=== PATIENT | female | born 1955 | race African-American/Black ===

== ENCOUNTER → 2016-10-17 | Outpatient (CLI) | payer OTHER | LOC: RAD 10:42 | PROVIDERS: ATTEND Family Medicine | DX: M25.552 Pain in left hip (principal); M25.551 Pain in right hip | CPT/HCPCS: 78315; A9503; Q9969 ==

== ENCOUNTER → 2017-07-05 | Outpatient (CLI) | payer OTHER ==
--- NOTE | 2017-07-05 17:11 | RADIOLOGY REPORT (SQ) ---
EXAM DESCRIPTION: CHEST PA/LATERAL COMPLETED DATE/TIME: 07/05/2017 4:57 pm REASON FOR STUDY: PRE OP COMPARISON: 04/02/2010 EXAM PARAMETERS: NUMBER OF VIEWS: two views TECHNIQUE: Digital Frontal and Lateral radiographic views of the chest acquired. RADIATION DOSE: NA LIMITATIONS: none FINDINGS: LUNGS AND PLEURA: No opacities, masses or pneumothorax. No pleural effusion. MEDIASTINUM AND HILAR STRUCTURES: No masses or contour abnormalities. HEART AND VASCULAR STRUCTURES: Heart normal size. No evidence for failure. BONES: No acute findings. HARDWARE: None in the chest. OTHER: No other significant finding. IMPRESSION: NO SIGNIFICANT RADIOGRAPHIC FINDING IN THE CHEST. TECHNICAL DOCUMENTATION: JOB ID: [id number] [employer]- All Rights Reserved
--- NOTE | 2017-07-05 17:36 | EKG REPORT ---
SEVERITY:- BORDERLINE ECG - SINUS RHYTHM PROBABLE LEFT ATRIAL ABNORMALITY : Confirmed by: Cari Guy MD 05-Jul-2017 17:34:48
[2017-07-05 18:02] LABS: ABSOLUTE EOSINOPHILS # (AUTO) 0.2 10^3/uL (0.0-0.6); ABSOLUTE MONOCYTES (AUTO) 0.7 10^3/uL (0.1-1.4); ABSOLUTE NEUT (AUTO) 6.1 10^3/uL (1.7-8.2); BASOPHILS % (AUTO) 0.5 % (0-2); EOSINOPHILS % (AUTO) 1.6 % (0-6); HEMATOCRIT 32.9 % (36.0-47.0); HEMOGLOBIN 11.3 g/dL (12.0-15.5); LYMPHOCYTES % (AUTO) 30.3 % (13-45); MEAN CORPUSCULAR HEMOGLOBIN 30.2 pg (27.0-33.4); MEAN CORPUSCULAR HGB CONC 34.3 g/dL (32.0-36.0); MEAN CORPUSCULAR VOLUME 88 fl (80-97); MONOCYTES % (AUTO) 6.6 % (3-13); RED BLOOD COUNT 3.73 10^6/uL (3.72-5.28); RED CELL DISTRIBUTION WIDTH 13.8 % (11.5-14.0)
[2017-07-05 18:08] LABS: APPEARANCE,URINE SLIGHTLY-CLOUDY; BILIRUBIN,URINE NEGATIVE (NEGATIVE); GLUCOSE, URINE NEGATIVE (NEGATIVE); KETONES,URINE NEGATIVE (NEGATIVE); LEUKOCYTE ESTERASE,URINE NEGATIVE (NEGATIVE); NITRITE,URINE NEGATIVE (NEGATIVE); PROTEIN,URINE NEGATIVE (NEGATIVE); URINE SPECIFIC GRAVITY 1.024; UROBILINOGEN,URINE NEGATIVE mg/dL (<2.0)
[2017-07-05 18:16] LABS: ANION GAP 14 (5-19); BLOOD UREA NITROGEN 21 mg/dL (7-20); CALCIUM 9.7 mg/dL (8.4-10.2); CARBON DIOXIDE 24 mmol/L (22-30); CHLORIDE 103 mmol/L (98-107); CREATININE RESULT 0.93 mg/dL (0.52-1.25); GLUCOSE 143 mg/dL (75-110); POTASSIUM 4.3 mmol/L (3.6-5.0); SODIUM 140.6 mmol/L (137-145)
== END ==
LOC: OD 15:58
PROVIDERS: ATTEND Orthopaedic Surgery
DX: Z01.818 Encounter for other preprocedural examination (principal)
CPT/HCPCS: 36415; 71020; 80048; 81001; 83036; 85025; 93005; 93010

== ENCOUNTER → 2017-07-18 | Outpatient (CLI) | payer OTHER ==
--- NOTE | 2017-07-18 10:05 | WOMENS IMAGING REPORT ---
EXAM DESCRIPTION: BILAT SCREENING MAMMO W/CAD COMPLETED DATE/TIME: 07/18/2017 9:57 am REASON FOR STUDY: ROUTINE SCREENING; Z12.31 Z12.31 ENCNTR SCREEN MAMMOGRAM FOR MALIGNANT NEOPLASM O F FRANKY COMPARISON: 06/23/2016 and 06/22/2015. TECHNIQUE: Standard craniocaudal and mediolateral oblique views of each breast recorded using digita l acquisition. LIMITATIONS: None. FINDINGS: No masses, calcifications or architectural distortion. No areas of suspicion. Read with the assistance of CAD. .[facility] - R2 Cenova Version 1.3 .[facility] - R2 Cenova Version 1.3 .[facility] - R2 Cenova Version 2.4 .[facility] [place] R2 Cenova Version 2.4 .[facility] - R2 Braze [employer] Version 9.2 IMPRESSION: NORMAL MAMMOGRAM. BIRADS 1. BREAST DENSITY: b. There are scattered areas of fibroglandular density. BIRAD: 1 NEGATIVE RECOMMENDATION: ROUTINE SCREENING COMMENT: The patient has been notified of the results by letter per MQSA requirements. Additional no tification policies are in place for contacting patient with suspicious or incomplete findings. Quality ID #[id number]: The [employer] recommends an annual screening mammogram for women aged 40 years or over. This facility utilizes a reminder system to ensure that all patients receive reminder letters, and/or direct phone calls for appointments. This includes reminders for routine scr eening mammograms, diagnostic mammograms, or other Breast Imaging Interventions when appropriate. Th is patient will be placed in the appropriate reminder system. The [employer] (ACR) has developed recommendations for screening MRI of the breast s in certain patient populations, to be used in conjunction with mammography. Breast MRI surveillanc e may be appropriate for women with more than 20% lifetime risk of developing breast cancer as deter mined by genetic testing, significant family history of the disease, or history of mantle radiation f or Hodgkins Disease. ACR Practice Guidelines 2008. TECHNICAL DOCUMENTATION: FINDING NUMBER: (1) ASSESSMENT: (1) JOB ID: [id number] [employer]- All Rights Reserved
== END ==
LOC: WI 09:20
PROVIDERS: ATTEND Family Medicine
DX: Z12.31 Encounter for screening mammogram for malignant neoplasm of breast (principal)
CPT/HCPCS: 77067; G0202

== ENCOUNTER 2017-07-24 06:22 | Inpatient (IN) | payer MEDICARE, OTHER ==
[~2017-07-24 06:22] MED LIST: CEFAZOLIN INJ 1 GM VIAL IV PRN; IBUPROFEN 800 MG in NORMAL SALINE 250 ML IV PRN; LACTATED RINGERS 1000 ML IV PRN; LANSOPRAZOLE 15 MG TAB.RAP.DR PO PRN; LIDOCAINE 0.5% INJ-PF (5 MG/ML) 50 ML SDV SUBCUT PRN; OXYCODONE HCL SR 10 MG TABLET PO PRN; VANCOMYCIN HCL 1,000 MG in DEXTROSE 5%-WATER 250 ML IV PRN
[2017-07-24] MEDS ORDERED: BUPIVACAINE INJ/PF LIPOSOME/PF 266 MG/20 ML SDV ONE (07:24)
[2017-07-24] MEDS ORDERED: THROMBIN (BOVINE) 5000 UNIT EPITAXIS KIT ONE (07:24)
[2017-07-24] MEDS ORDERED: THROMBIN (BOVINE) TOPICAL 20000 UNIT VIAL ONE (07:24)
[2017-07-24 07:37] LABS: POTASSIUM 3.8 mmol/L (3.6-5.0)
[2017-07-24] MEDS ORDERED: PROPOFOL INJ 200 MG/20 ML VIAL IV ONE (08:03)
[2017-07-24] MEDS ORDERED: MIDAZOLAM 2 MG/2 ML INJ ONE (08:03)
[2017-07-24] MEDS ORDERED: KETAMINE HCL INJ 500 MG/10 ML VIAL ONE (08:03)
[2017-07-24] MEDS ORDERED: TRANEXAMIC ACID INJ/PF 1,000 MG/10 ML SDV IV ONE ×2 (08:03→12:30)
[2017-07-24 08:43] LABS: HEMATOCRIT 32.3 % (36.0-47.0); HEMOGLOBIN 10.9 g/dL (12.0-15.5); HGB HCT DIFFERENCE 0.4; MEAN CORPUSCULAR HEMOGLOBIN 29.9 pg (27.0-33.4); MEAN CORPUSCULAR HGB CONC 33.9 g/dL (32.0-36.0); MEAN CORPUSCULAR VOLUME 88 fl (80-97); RED BLOOD COUNT 3.66 10^6/uL (3.72-5.28)
[2017-07-24] MEDS ORDERED: PROMETHAZINE HCL INJ 25 MG/1 ML VIAL IV PRN ×2 (09:57)
[2017-07-24] MEDS ORDERED: OXYCODONE-ACETAMINOPHEN 5-325 MG TABLET PO PRN ×4 (09:57→11:43)
[2017-07-24] MEDS ORDERED: MORPHINE SULFATE 10 MG/ML INJ IV PRN ×4 (09:57→10:11)
[2017-07-24] MEDS ORDERED: MEPERIDINE HCL/PF INJ 25 MG/1 ML DISP.SYRIN IV PRN (09:57)
[2017-07-24] MEDS ORDERED: FENTANYL CITRATE INJ/PF 100 MCG/2 ML AMPUL IV PRN ×3 (09:57)
[2017-07-24] MEDS ORDERED: DIPHENHYDRAMINE HCL 50 MG/ML VIAL IV PRN ×2 (09:57→10:11)
--- NOTE | 2017-07-24 10:03 | Operative Report ---
Operative Report DATE OF SURGERY: 07/24/17 PREOPERATIVE DIAGNOSIS: Left hip arthritis OPERATION: Left hip arthroplasty SURGEON: MARC AGUILAR 1ST STEM LEAD FORMER: DENISSE ORTIZ ANESTHESIA: Spinal TISSUE REMOVED OR ALTERED: Bone to pathology ESTIMATED BLOOD LOSS: 100 PROCEDURE: Implants used: Femur: [place] Accolade 2 size 2 stem Acetabular shell: 52 mm PSL shell Liner: 36 mm flat cross-link polyethylene liner Head: 36 mm standard chrome cobalt head The patient is placed in a right lateral decubitus position on the operating table. The left lower extremity and hindquarter is prepped and draped in a sterile fashion. A curvilinear incision was made over the greater trochanter a posterior approach the hip was taken. The femoral head is dislocated and the femoral neck transected using an oscillating saw. Attention was next turned to the acetabulum. Soft tissues cleared off the acetabulum using electrocautery. The acetabulum was then prepared using a series of hemispherical reamers until a 52 millimeters reamer is seated. Subsequently a 52 millimeters [place] PSL shell is impacted into position and secured with one screw. A standard flat 36 millimeters cross-link liner is impacted into the shell. Attention was next turned to the femur. Access is gained to the femoral canal using a box osteotome to the piriformis fossa. The femur is then prepared using a series of broaches until a number 2 broach is seated. A trial reduction was now performed using a 36 millimeters head with standard neck. Preoperative leg length was recreated and is excellent anterior posterior stability. A decision was made to proceed with the above construct. All trial implants were removed. The wound is irrigated with pulsed lavage. A number 2 stem is impacted into the femoral canal. A trial reduction was again performed with a 36 mm head and a standard neck. Findings as previously. The hip was dislocated one last time and the final chrome-cobalt head is impacted onto the trunnion. The hip was reduced. Wound is copiously irrigated with pulsed lavage. Sent closed in layers using interrupted Vicryl followed by karlie. A sterile dressing is applied and the patient's returned to recovery room in satisfactory patient.
[2017-07-24] MEDS ORDERED: DEXTROSE 40% GEL 15 GM TUBE PO PRN ×3 (10:11→11:38)
[2017-07-24] MEDS ORDERED: ONDANSETRON 4 MG TAB.RAPDIS PO PRN ×2 (10:11→14:00)
[2017-07-24] MEDS ORDERED: ACETAMINOPHEN 325 MG TABLET PO PRN (10:11)
[2017-07-24] MEDS ORDERED: MORPHINE SULFATE 10 MG/ML INJ IM PRN (10:11)
[2017-07-24] MEDS ORDERED: DEXTROSE 50%-WATER 25 GM/50 ML DISP.SYRIN IV PRN ×2 (10:11)
[2017-07-24] MEDS ORDERED: ONDANSETRON HCL INJ/PF 4 MG/2 ML SDV IV PRN ×2 (10:11→14:00)
[2017-07-24] MEDS ORDERED: RINGERS SOLUTION,LACTATED 1,000 ML IV PRN (10:11)
[2017-07-24] MEDS ORDERED: ZOLPIDEM TARTRATE 5 MG TABLET PO PRN ×2 (10:11→14:30)
[2017-07-24] MEDS ORDERED: GLUCAGON,HUMAN RECOMB 1 MG INJ SUBCUT PRN (10:11)
[2017-07-24] MEDS ORDERED: MAG HYDROX/AL HYDROX/SIMETH SUSP 30 ML UDCUP PO PRN ×2 (10:11→14:30)
[2017-07-24] MEDS ORDERED: ACETAMINOPHEN 100 ML IV ONE ×2 (10:50→16:11)
--- NOTE | 2017-07-24 10:55 | RADIOLOGY REPORT (SQ) ---
EXAM DESCRIPTION: PELVIS AP COMPLETED DATE/TIME: 07/24/2017 10:45 am REASON FOR STUDY: Post Op Long Cassette in PACU M16.12 UNILATERAL PRIMARY OSTEOARTHRITIS, LEFT HI P COMPARISON: CT abdomen and pelvis 09/13/2016 Bone scan of the hips 10/17/2016 NUMBER OF VIEWS: Portable AP pelvis TECHNIQUE: Digital radiographic images of the right hip post-procedure. LIMITATIONS: Obese patient FINDINGS: Fine bony detail over the pelvis is lost due to portable technique and large patient. The left hip replacement present, anchored by an acetabular screw. Acetabular screw parallels the [place] cortex of the left innominate bone, some of the screw threads are outside the bone. Femoral compo nent in good alignment. Barry catheter in the bladder IMPRESSION: Postoperative left hip as above. TECHNICAL DOCUMENTATION: JOB ID: [id number] [employer]- All Rights Reserved
[2017-07-24] MEDS ORDERED: INSULIN LISPRO 100 UNIT/ML 3 ML VIAL SUBCUT PRN (11:38)
[2017-07-24] MEDS ORDERED: DEXTROSE 50%-WATER SYRINGE 25 GM/50 ML DOSE IV PRN (11:38)
[2017-07-24] MEDS ORDERED: GLUCAGON,HUMAN RECOMB 1 MG INJ IM PRN (11:38)
[2017-07-24] MEDS ORDERED: DEXTROSE 40% GEL 15 GM TUBE X 2 PO PRN (11:38)
[2017-07-24] MEDS ORDERED: DEXTROSE 50%-WATER SYRINGE 12.5 GM/25 ML DOSE IV PRN (11:38)
[2017-07-24] MEDS ORDERED: HYDROMORPHONE HCL INJ/PF 2 MG/ML AMPULE IV PRN (11:42)
[2017-07-24] MEDS ORDERED: IBUPROFEN 800 MG TABLET PO PRN (11:44)
[2017-07-24] MEDS: METFORMIN HCL 500 MG TABLET PO SCH ×3 (14:05→21:36)
[2017-07-24] MEDS ORDERED: PHENYLEPHRINE HCL INJ/PF 10 MG/1 ML SDV ONE (15:17)
[2017-07-24] MEDS ORDERED: ONDANSETRON HCL INJ/PF 4 MG/2 ML SDV ONE (15:17)
[2017-07-24] MEDS: OXYCODONE HCL IR 5 MG TABLET PO PRN (16:10)
[2017-07-24] MEDS ORDERED: (PENDING PHARMACY ID) (Metformin Hcl [Metformin Hcl Er] 1,000 MG) PO SCH (17:00)
[2017-07-24] MEDS: IBUPROFEN 800 MG in NORMAL SALINE 250 ML IV SCH (17:43)
[2017-07-24] MEDS: OXYCODONE HCL SR 10 MG TABLET PO SCH (21:35)
[2017-07-24] MEDS: PREGABALIN 75 MG CAPSULE PO SCH (21:36)
[2017-07-24] MEDS: TRIAMTERENE/HYDROCHLOROTHIAZIDE 37.5-25 MG TABLET PO SCH (21:36)
[2017-07-24] MEDS: RIVAROXABAN 10 MG TABLET PO SCH (21:36)
[2017-07-24] MEDS: MONTELUKAST SODIUM 10 MG TABLET PO SCH (21:36)
[2017-07-24] MEDS ORDERED: (PENDING PHARMACY ID) (Triamterene/Hydrochlorothiazid [Triamterene-Hctz 37.5-25 Mg Cp] 1 C PO SCH (22:00)
[2017-07-24] MEDS ORDERED: PREGABALIN 75 MG CAPSULE PO SCH (22:00)
[2017-07-24] MEDS ORDERED: VANCOMYCIN HCL 1,000 MG in DEXTROSE 5%-WATER 250 ML IV ONE (22:11)
[2017-07-25] MEDS: IBUPROFEN 800 MG in NORMAL SALINE 250 ML IV SCH ×3 (02:18→17:23)
[2017-07-25] MEDS: LANSOPRAZOLE 30 MG TAB.RAP.DR PO SCH (05:38)
[2017-07-25 05:53] LABS: HEMATOCRIT 27.4 % (36.0-47.0); HEMOGLOBIN 9.4 g/dL (12.0-15.5); HGB HCT DIFFERENCE 0.8; MEAN CORPUSCULAR HEMOGLOBIN 30.9 pg (27.0-33.4); MEAN CORPUSCULAR HGB CONC 34.4 g/dL (32.0-36.0); MEAN CORPUSCULAR VOLUME 90 fl (80-97); RED BLOOD COUNT 3.05 10^6/uL (3.72-5.28); RED CELL DISTRIBUTION WIDTH 13.5 % (11.5-14.0)
[2017-07-25] MEDS ORDERED: LANSOPRAZOLE 30 MG TAB.RAP.DR PO SCH (06:00)
[2017-07-25 06:34] LABS: ANION GAP 13 (5-19); BLOOD UREA NITROGEN 18 mg/dL (7-20); CALCIUM 8.3 mg/dL (8.4-10.2); CARBON DIOXIDE 25 mmol/L (22-30); CHLORIDE 102 mmol/L (98-107); CREATININE RESULT 0.82 mg/dL (0.52-1.25); GLUCOSE 141 mg/dL (75-110); POTASSIUM 4.1 mmol/L (3.6-5.0); SODIUM 139.7 mmol/L (137-145)
[2017-07-25] MEDS ORDERED: INFLUENZA ADLT QUAD (36MOS+) 2017-18 VAC 0.5 ML SYR IM PRN (06:45)
--- NOTE | 2017-07-25 06:58 | PDOC PROGRESS REPORT ---
Subjective Progress Note for:: 07/25/17 Subjective:: Patient with minor complaints of discomfort this morning. Physical Exam Vital Signs: Temp Pulse Resp BP Pulse Ox 36.7 C 61 17 111/60 93 07/24/17 20:10 07/24/17 20:10 07/24/17 20:10 07/24/17 20:10 07/24/17 20:10 Intake & Output 07/23/17 07/24/17 07/25/17 06:59 06:59 06:59 Intake Total 5120 Output Total 3800 Balance 1320 General appearance: PRESENT: mild distress Head exam: PRESENT: normocephalic Respiratory exam: PRESENT: unlabored Cardiovascular exam: PRESENT: RRR Pulses: PRESENT: +1 pedal pulses bilateral Vascular exam: PRESENT: normal capillary refill GI/Abdominal exam: PRESENT: soft Rectal exam: PRESENT: deferred Extremities exam: PRESENT: other - Left hip dressing clean dry and intact. Leg lengths are equal. Distal neurovascular examination is intact. Neurological exam: PRESENT: alert, awake, oriented to person, oriented to place , oriented to time, oriented to situation. ABSENT: motor sensory deficit Psychiatric exam: PRESENT: appropriate affect, normal mood. ABSENT: homicidal ideation, suicidal ideation Skin exam: PRESENT: dry, intact, warm. ABSENT: cyanosis, rash Results Laboratory Results: 07/25/17 05:17 07/25/17 05:17 07/24/17 07/24/17 07/24/17 07:04 07:04 07:04 WBC 11.0 H RBC 3.66 L Hgb 10.9 L Hct 32.3 L MCV 88 MCH 29.9 MCHC 33.9 RDW 13.0 Plt Count 298 Sodium Potassium 3.8 Chloride Carbon Dioxide Anion Gap BUN Creatinine Est GFR ( Amer) Est GFR (Non-Af Amer) Glucose 149 H Calcium Blood Type B POSITIVE Antibody Screen NEGATIVE 07/25/17 07/25/17 05:17 05:17 WBC 9.0 RBC 3.05 L Hgb 9.4 L Hct 27.4 L MCV 90 MCH 30.9 MCHC 34.4 RDW 13.5 Plt Count 257 Sodium 139.7 Potassium 4.1 Chloride 102 Carbon Dioxide 25 Anion Gap 13 BUN 18 Creatinine 0.82 Est GFR ( Amer) > 60 Est GFR (Non-Af Amer) > 60 Glucose 141 H Calcium 8.3 L Blood Type Antibody Screen Impressions: Pelvis X-Ray 07/24/17 10:13 IMPRESSION: Postoperative left hip as above. Status: Imported from PACS Assessment & Plan - Diagnosis (1) Arthritis of left hip Is this a current diagnosis for this admission?: Yes Plan: 61-year-old black female postop day 1 left hip arthroplasty. Patient made limited progress with physical therapy including 70 feet. (2) Diabetes Qualifiers: Diabetes mellitus type: type 2 Is this a current diagnosis for this admission?: Yes Plan: Blood glucose range yesterday was between 110 and 145 - Time Time Spent with patient: 15-24 minutes Anticipated discharge: Home with Homehealth Within: within 24 hours - Patient to continue with physical therapy today. Anticipate discharge home with home health nursing and home health physical therapy tomorrow.
[2017-07-25] MEDS ORDERED: [UNRECOGNIZED DRUG - OTHER] PO SCH (10:00)
[2017-07-25] MEDS ORDERED: ATENOLOL 50 MG TABLET PO SCH (10:00)
[2017-07-25] MEDS ORDERED: BISOPROLOL PO SCH (10:00)
[2017-07-25] MEDS ORDERED: (PENDING PHARMACY ID) (Oxybutynin Chloride [Oxybutynin Chloride Er] 10 MG) PO SCH (10:00)
[2017-07-25] MEDS ORDERED: (PENDING PHARMACY ID) (Duloxetine Hcl [Duloxetine Hcl] 60 MG) PO SCH (10:00)
[2017-07-25] MEDS ORDERED: HYDROCHLOROTHIAZIDE PO SCH (10:00)
[2017-07-25] MEDS: METFORMIN HCL 500 MG TABLET PO SCH ×4 (10:21→21:50)
[2017-07-25] MEDS: PREGABALIN 75 MG CAPSULE PO SCH ×2 (10:22→21:50)
[2017-07-25] MEDS: OXYCODONE HCL SR 10 MG TABLET PO SCH ×2 (10:22→21:50)
[2017-07-25] MEDS: OXYBUTYNIN CHLORIDE 5 MG TABLET PO SCH (10:23)
[2017-07-25] MEDS: GLIPIZIDE XL 5 MG TAB.ER.24 PO SCH (10:24)
[2017-07-25] MEDS: DULOXETINE HCL 30 MG CAPSULE.DR PO SCH (10:24)
[2017-07-25] MEDS: MONTELUKAST SODIUM 10 MG TABLET PO SCH (21:49)
[2017-07-25] MEDS: TRIAMTERENE/HYDROCHLOROTHIAZIDE 37.5-25 MG TABLET PO SCH (21:49)
[2017-07-25] MEDS: RIVAROXABAN 10 MG TABLET PO SCH (21:49)
[2017-07-26] MEDS: IBUPROFEN 800 MG in NORMAL SALINE 250 ML IV SCH ×2 (01:55→10:23)
[2017-07-26] MEDS: LANSOPRAZOLE 30 MG TAB.RAP.DR PO SCH (06:09)
[2017-07-26 07:01] LABS: HEMATOCRIT 28.3 % (36.0-47.0); HEMOGLOBIN 9.6 g/dL (12.0-15.5); HGB HCT DIFFERENCE 0.5; MEAN CORPUSCULAR HEMOGLOBIN 30.2 pg (27.0-33.4); MEAN CORPUSCULAR HGB CONC 33.9 g/dL (32.0-36.0); MEAN CORPUSCULAR VOLUME 89 fl (80-97); RED BLOOD COUNT 3.17 10^6/uL (3.72-5.28); RED CELL DISTRIBUTION WIDTH 13.1 % (11.5-14.0); WHITE BLOOD COUNT 12.1 10^3/uL (4.0-10.5)
--- NOTE | 2017-07-26 07:27 | PDOC DISCHARGE SUMMARY ---
General - Admit/Disc Date/PCP Admission Date/Primary Care Provider: 07/24/17 06:22 TEE NICHOLAS MD Discharge Date: 07/26/17 - Discharge Diagnosis (1) Arthritis of left hip Is this a current diagnosis for this admission?: Yes - Additional Information Resuscitation Status: Full Code Discharge Diet: As Tolerated, Regular Discharge Activity: No Driving, No tub bath, Walk Frequently Home Medications: Aspirin [Angelica Chewable Aspirin] 81 mg PO DAILY 07/13/17 Bisoprolol/Hydrochlorothiazide [Bisoprolol-Hctz 5-6.25 mg Tab] 1 tab PO DAILY Duloxetine HCl 60 mg PO DAILY 07/13/17 Metformin HCl [Metformin HCl ER] 1,000 mg PO BIDBS 07/13/17 Montelukast Sodium [Singulair 10 mg Tablet] 10 mg PO QHS 07/13/17 Oxybutynin Chloride [Oxybutynin Chloride ER] 10 mg PO DAILY 07/13/17 Pantoprazole Sodium 40 mg PO DAILY 07/13/17 Triamterene/Hydrochlorothiazid [Triamterene-Hctz 37.5-25 mg Cp] 1 cap PO QHS Estradiol [Estradiol Transdermal Patch] 1 each TD GOODWIN@1000 07/23/17 Glipizide [Glipizide Xl] 10 mg PO ACBRKFST 07/23/17 Pregabalin [Lyrica] 150 mg PO Q12 07/23/17 Oxycodone HCl [Oxy-Ir 5 mg Tablet] 5 mg PO Q6HP PRN tablet 07/26/17 Rivaroxaban [Xarelto 10 mg Tablet] 10 mg PO QHS tablet 07/26/17 History of Present Illness History of Present Illness: MO ADLER is a 61 year old female with left hip arthritis to was admitted to the OR and underwent elective total left hip arthroplasty. Hospital Course Hospital Course: 61-year-old -[place] female with left hip arthritis who was admitted to the OR to undergo uncomplicated total left hip arthroplasty. She was taken to PACU in satisfactory condition. She was then taken to the surgical floor where her pain was managed by nursing staff and Dr. Alves. She was also seen by physical therapy to improve strength range of motion of the left lower extremity and work towards independent ambulation. She made great progress independently ambulating up to 150 feet. She will be discharged home today with home health nursing, home physical therapy, wheeled walker, bedside commode. Physical Exam Vital Signs: Temp Pulse Resp BP Pulse Ox 36.6 C 97 16 131/64 H 96 07/26/17 02:00 07/26/17 02:00 07/26/17 02:00 07/26/17 02:00 07/26/17 02:00 Intake & Output 07/25/17 07/26/17 07/27/17 06:59 06:59 06:59 Intake Total 5120 3414 Output Total 3800 600 Balance 1320 2814 General appearance: PRESENT: no acute distress, well-developed, well-nourished Head exam: PRESENT: atraumatic, normocephalic Pulses: PRESENT: normal dorsalis pedis pul, +2 pedal pulses bilateral Vascular exam: PRESENT: normal capillary refill Additional comments: Patient is lying recumbent in hospital bed with left lower extremity in full extension. Her honeycomb OpSite dressing is saturated with bhakti blood. This dressing is changed and a new one is placed and this is clean dry and intact. She has brisk capillary refill to toes on bilateral feet, there is minimal pedal edema her distal neurovascular exam is intact and her sensory and motor functions are intact Musculoskeletal exam: PRESENT: ambulatory Additional comments: Patient makes great progress with physical therapy and relating up to 150 feet independently. She will continue to work with home physical therapy to improve strength range of motion of the left lower extremity. Neurological exam: PRESENT: alert, awake, oriented to person, oriented to place , oriented to time, oriented to situation, CN II-XII grossly intact. ABSENT: motor sensory deficit Psychiatric exam: PRESENT: appropriate affect, normal mood. ABSENT: homicidal ideation, suicidal ideation Skin exam: PRESENT: dry, intact, warm. ABSENT: cyanosis, rash Results Laboratory Results: 07/26/17 06:08 07/25/17 05:17 07/26/17 06:08 WBC 12.1 H RBC 3.17 L Hgb 9.6 L Hct 28.3 L MCV 89 MCH 30.2 MCHC 33.9 RDW 13.1 Plt Count 243 Impressions: Pelvis X-Ray 07/24/17 10:13 IMPRESSION: Postoperative left hip as above. Plan Discharge Plan: 61-year-old -[place] female 2 days status post total left hip arthroplasty will be discharged home today with home health nursing, home physical therapy, walker, bedside commode. There was initial discussion of patient being discharged home and then transferring to a [facility] facility. Patient was advised that this is not the best option as she would be very difficult to transfer her from her home to a [facility] facility. Patient agreed to be discharged to her home and the visiting nurse service will change her OpSite dressing when they deem appropriate i.e. when it is saturated with bhakti blood. She will follow-up with Dr. Alves and Nicola PAZ at [facility] for surgery 2 weeks postoperatively for staple removal and reevaluation. Time Spent: Less than 30 Minutes
[2017-07-26] MEDS: METFORMIN HCL 500 MG TABLET PO SCH ×2 (08:26→12:18)
[2017-07-26] MEDS: OXYCODONE HCL IR 5 MG TABLET PO PRN (08:34)
[2017-07-26] MEDS: GLIPIZIDE XL 5 MG TAB.ER.24 PO SCH (10:19)
[2017-07-26] MEDS: OXYCODONE HCL SR 10 MG TABLET PO SCH (10:19)
[2017-07-26] MEDS: PREGABALIN 75 MG CAPSULE PO SCH (10:19)
[2017-07-26] MEDS: DULOXETINE HCL 30 MG CAPSULE.DR PO SCH (10:19)
[2017-07-26] MEDS: OXYBUTYNIN CHLORIDE 5 MG TABLET PO SCH (10:20)
[2017-07-26 12:43] VITALS: BP 131/64
[2017-07-30] MEDS ORDERED: ESTRADIOL 0.1 MG/24 HR PATCH.TDWK TD SCH (10:00)
== END 2017-07-26 13:31 | disposition home health service (06) | DRG 470 ==
LOC: INOR 06:22 → 4S 12:36
PROVIDERS: ADMIT Orthopaedic Surgery; ATTEND Orthopaedic Surgery
PROC: 3E0234Z Introduction of Serum, Toxoid and Vaccine into Muscle, Percutaneous Approach (ICD-10-PCS; 2017-07-24)
PROC: 0SRB02A Replacement of Left Hip Joint with Metal on Polyethylene Synthetic Substitute, Uncemented, Open Approach (ICD-10-PCS; principal; 2017-07-24 08:45)
DX: M16.12 Unilateral primary osteoarthritis, left hip (principal); E11.9 Type 2 diabetes mellitus without complications; F41.9 Anxiety disorder, unspecified; J45.909 Unspecified asthma, uncomplicated; Z83.3 Family history of diabetes mellitus; Z79.82 Long term (current) use of aspirin; Z79.84 Long term (current) use of oral hypoglycemic drugs; Z79.899 Other long term (current) drug therapy; M54.16 Radiculopathy, lumbar region; Z96.653 Presence of artificial knee joint, bilateral; Z90.710 Acquired absence of both cervix and uterus; E66.3 Overweight; Z68.36 Body mass index [BMI] 36.0-36.9, adult; Z23 Encounter for immunization
CPT/HCPCS: 01214; 36415; 72170; 80048; 82947; 82962; 84132; 85027; 86850; 86900; 86901; 86902; 86920; 86922; 88304; 88311; 90686; 94799; C1713; C1780; C9290; G8978-GP; G8979-GP; G8987-GO; G8988-GO; J0131; J0690; J1741; J2250; J2370; J2405; J2704; J3370; J3490; J7050; J7060; J7120

== ENCOUNTER → 2018-03-13 | Outpatient (CLI) | payer MEDICARE, OTHER ==
[2018-03-13 08:50] LABS: HEMATOCRIT 31.9 % (36.0-47.0); HEMOGLOBIN 10.6 g/dL (12.0-15.5); MEAN CORPUSCULAR HEMOGLOBIN 28.2 pg (27.0-33.4); MEAN CORPUSCULAR HGB CONC 33.1 g/dL (32.0-36.0); MEAN CORPUSCULAR VOLUME 85 fl (80-97); PLATELET COUNT 341 10^3/uL (150-450); RED BLOOD COUNT 3.74 10^6/uL (3.72-5.28); RED CELL DISTRIBUTION WIDTH 15.2 % (11.5-14.0); WHITE BLOOD COUNT 9.1 10^3/uL (4.0-10.5)
[2018-03-13 09:23] LABS: ALANINE AMINOTRANSFERASE 20 U/L (9-52); ALBUMIN 3.9 g/dL (3.5-5.0); ALKALINE PHOSPHATASE 73 U/L (38-126); ANION GAP 11 (5-19); ASPARTATE AMINO TRANSFERASE 17 U/L (14-36); BILIRUBIN,DIRECT 0.2 mg/dL (0.0-0.4); BILIRUBIN,TOTAL 0.2 mg/dL (0.2-1.3); BLOOD UREA NITROGEN 24 mg/dL (7-20); CALCIUM 9.9 mg/dL (8.4-10.2); CARBON DIOXIDE 27 mmol/L (22-30); CHLORIDE 106 mmol/L (98-107); CHOLESTEROL 167.08 mg/dL (0-200); GLUCOSE 113 mg/dL (75-110); POTASSIUM 4.1 mmol/L (3.6-5.0); TOTAL PROTEIN 7.1 g/dL (6.3-8.2); TRIGLYCERIDES 118 mg/dL (<150)
[2018-03-13 09:34] LABS: DIRECT LDL 97 mg/dL (<100)
== END ==
LOC: OD 08:14
PROVIDERS: ATTEND Internal Medicine Cardiovascular Disease
DX: R06.09 Other forms of dyspnea (principal); I10 Essential (primary) hypertension; E03.9 Hypothyroidism, unspecified; R07.9 Chest pain, unspecified; Z79.899 Other long term (current) drug therapy
CPT/HCPCS: 36415; 80048; 80061; 80076; 82306; 83735; 84439; 84443; 85027

== ENCOUNTER → 2018-04-10 | Outpatient (CLI) | payer MEDICARE, OTHER ==
[2018-04-10 13:47] LABS: ALANINE AMINOTRANSFERASE 20 U/L (9-52); ALKALINE PHOSPHATASE 64 U/L (38-126); ASPARTATE AMINO TRANSFERASE 15 U/L (14-36); BILIRUBIN,DIRECT 0.2 mg/dL (0.0-0.4); BILIRUBIN,TOTAL 0.6 mg/dL (0.2-1.3); CHOLESTEROL 122.99 mg/dL (0-200); TOTAL PROTEIN 7.2 g/dL (6.3-8.2); TRIGLYCERIDES 84 mg/dL (<150)
[2018-04-10 14:01] LABS: DIRECT LDL 50 mg/dL (<100)
== END ==
LOC: OD 12:24
PROVIDERS: ATTEND Internal Medicine Cardiovascular Disease
DX: E83.42 Hypomagnesemia (principal); E78.00 Pure hypercholesterolemia, unspecified; Z79.899 Other long term (current) drug therapy
CPT/HCPCS: 36415; 80061; 80076; 83735

== ENCOUNTER 2018-04-15 21:18 | Emergency (ER) | payer MEDICARE, OTHER ==
[2018-04-15] MEDS ORDERED: METOCLOPRAMIDE HCL INJ/PF 10 MG/2 ML SDV IV ONE (23:27)
[2018-04-15] MEDS ORDERED: DIPHENHYDRAMINE HCL 50 MG/ML VIAL IV ONE (23:27)
--- NOTE | 2018-04-15 23:32 | ER Document Report ---
ED General - General Chief Complaint: Breathing Difficulty Stated Complaint: HEADACHE Time Seen by Provider: 04/15/18 23:14 Notes: Patient is a 62-year-old female who presents with a few different complaints. First complaint is of a headache. Says a throbbing type of headache goes into her head. She first started noticing a Monday evening and has been continuous since then. She says it does seem to be worse after she takes isosorbide dinitrate. This was recently prescribed by her hotel yardperson, Dr. Abdalla. She says this was prescribed for her because she had a recent nuclear stress test that showed that she had a small blockage on a nuclear tress test was 2 weeks ago. She also had an echocardiogram that showed that she had a "mildly leaky valve". No traumatic injuries to the head. No recent fevers or infections. Patient's second complaint is of a lot of burping. She says when she burps she sometimes feels as if there are foods and come up. This also started approximately 2 days ago. She denies any associated abdominal pain. No new chest pain. Says when she gets a choking sensation she sometimes feels a bit short of breath with it. No vomiting. No spitting up blood. TRAVEL OUTSIDE OF THE [place] IN LAST 30 DAYS: No - Related Data Allergies/Adverse Reactions: No Known Allergies Allergy (Verified 07/24/17 07:04) Past Medical History - Social History Smoking Status: Never Smoker Chew tobacco use (# tins/day): No Frequency of alcohol use: None Drug Abuse: None Family History: Reviewed & Not Pertinent Patient has suicidal ideation: No Patient has homicidal ideation: No - Past Medical History Cardiac Medical History: Reports: Hx Hypertension Denies: Hx Atrial Fibrillation, Hx Congestive Heart Failure, Hx Coronary Artery Disease, Hx Heart Attack, Hx Hypercholesterolemia, Hx Peripheral Vascular Disease, Hx Pulmonary Embolism, Hx Heart Murmur Pulmonary Medical History: Reports: Hx Asthma, Hx Bronchitis, Hx Sleep Apnea - uses machine at home Denies: Hx COPD, Hx Pneumonia, Hx Respiratory Failure, Hx Tuberculosis Endocrine Medical History: Reports: Hx Diabetes Mellitus Type 2. Denies: Hx Graves' Disease, Hx Hyperthyroidism, Hx Hypothyroidism Renal/ Medical History: Denies: Hx End Stage Renal Disease, Hx Kidney Stones, Hx Peritoneal Dialysis Malignancy Medical History: Denies: Hx Lung Cancer GI Medical History: Reports: Hx Gastroesophageal Reflux Disease. Denies: Hx Crohn's Disease, Hx Hiatal Hernia, Hx Irritable Bowel, Hx Liver Failure, Hx Pancreatitis, Hx Ulcer Musculoskeletal Medical History: Reports Hx Arthritis, Denies Hx Fibromyalgia, Denies Hx Muscular Dystrophy, Reports Hx Musculoskeletal Deformity, Reports Hx Musculoskeletal Trauma Psychiatric Medical History: Denies: Hx Bipolar Disorder, Hx Depression, Hx Post Traumatic Stress Disorder , Hx Schizophrenia Traumatic Medical History: Denies: Hx Fractures Past Surgical History: Reports: Hx Hysterectomy, Hx Orthopedic Surgery - back; right foot; bilateral wrist for carpal tunnel, bilateral knee replace. Denies: Hx Appendectomy, Hx Bowel Surgery, Hx Section, Hx Cholecystectomy, Hx Colostomy, Hx Coronary Artery Bypass Graft, Hx Gastric Bypass Surgery, Hx Herniorrhaphy, Hx Mastectomy, Hx Pacemaker, Hx Tonsillectomy, Hx Tubal Ligation - Immunizations Immunizations up to date: No Hx Diphtheria, Pertussis, Tetanus Vaccination: No Review of Systems - Review of Systems Notes: My Normal Review Basic REVIEW OF SYSTEMS: CONSTITUTIONAL : Denies fever, chills, or sweats. Denies recent illness. EENT: Choking type sensation after she eats. Recurrent burping. CARDIOVASCULAR: Denies chest pain. RESPIRATORY: Denies cough, cold, or chest congestion. Denies shortness of breath, difficulty breathing, or wheezing. GASTROINTESTINAL: Denies abdominal pain. Denies nausea, vomiting, or diarrhea. Denies constipation. Last BM: GENITOURINARY: Denies difficulty urinating, painful urination, burning, frequency, or blood in urine. MUSCULOSKELETAL: Denies neck or back pain or joint pain or swelling. SKIN: Denies rash or skin lesions. NEUROLOGICAL: Denies altered mental status or loss of consciousness. Has a headache. Denies weakness or paralysis or loss of use of either side. Denies problems with gait or speech. Denies sensory or motor loss. ALL OTHER SYSTEMS REVIEWED AND NEGATIVE. Physical Exam - Vital signs Vitals: Temp Pulse Resp BP Pulse Ox 98.7 F 89 16 148/69 H 99 04/15/18 22:43 04/15/18 22:43 04/15/18 22:43 04/15/18 22:43 04/15/18 22:43 - Notes Notes: General Appearance: Well nourished, alert, cooperative, no acute distress, mild obvious discomfort. Vitals: reviewed, See vital signs table. Head: no swelling or tenderness to the head Eyes: PERRL, EOMI, Conjuctiva clear Mouth: No decreasd moisture Throat: No tonsillar inflammation, No airway obstruction, No lymphadenopathy Neck: Supple, no neck tenderness Lungs: No wheezing, No rales, No rhonci, No accessory muscle use, good air exchange bilaterally. Heart: Normal rate, Regular rythm, No murmur, no rub Abdomen: Normal BS, soft, No rigidity, No abdominal tenderness, No guarding, no rebound, no abdominal masses, no organomegaly Extremities: strength 5/5 in all extremities, good pulses in all extremities, no swelling or tenderness in the extremities, no edema. Skin: warm, dry, appropriate color, no rash Neuro: speech clear, oriented x 3, normal affect, responds appropriately to questions. Cranial nerves II through XII are intact. Distal sensation intact. Good strength in all 4 extremities. Normal coordination of movement. Course - Re-evaluation Re-evalutation: 04/16/18 01:53 Patient's headache is gradually improving. She says she feels much better as compared when she first arrived. Continue monitor make sure she that she continues to improve. 04/16/18 02:41 Patient still has some headache. Headache is little bit atypical for her and that she has not had many headaches like this in the past. Hard to tell if it is really sudden onset of more gradual onset based on her history. Sometimes she says things suggest is gradual onset and other times she suggests that came on more suddenly. Her noncontrasted CT scan is negative. I informed her that this is not 100% will not subarachnoid hemorrhage. I think subarachnoid hemorrhage is less likely; however, I told her I cannot fully rule out subarachnoid hemorrhage with a dry CT scan alone. I talked about other options such as lumbar puncture and CTA of the head. I informed her that lumbar puncture is more sensitive and is the closest thing to 100%. I informed that CT is still very sensitive but is not 100% sensitive. I reviewed the procedure lumbar puncture with her and CTA of the head as well. She prefers to do CTA and does not want lumbar puncture at this time. I have ordered a CTA of her head. 04/16/18 04:27 CTA of the head was normal. Patient's headache is now gone. She looks and feels improved. She was her headaches are worse whenever she takes isosorbide medication was recently prescribed to her. This could be possibly the underlying cause of the headache however the patient thinks her headache actually started approximately 2 hours before ever taking the medication however this is not 100% clear. Informed her to speak with her hotel yardperson, Dr. Abdalla, about whether not they can be adjustment of this medication to help reduce amount of headache she is having. I have prescribed Reglan for her. Informed her she should return to ER if she has recurrent worsening headaches are not improved with medication. Patient also has the acid reflux type symptoms and that she has the recurrent burping as well as the sensation of food sometimes gets stuck. She is followed by Dr. Moore neck she has an appointment this coming week with him to discuss whether or not she needs a repeat endoscopy. I encourage her to make sure that she does mention to him the symptoms that she has been having said that they can discuss whether or not she does need a repeat endoscopy and further treatment. She is already on a proton pump inhibitor. I informed her return to ER immediately if she has worsening of her symptoms, vomiting blood, fevers, or she feels unwell. Patient agrees with plan will be discharged home. Patient is also out of her blood pressure medication therefore have written prescription for this. Dictation of this chart was performed using voice recognition software; therefore, there may be some unintended grammatical errors. - Vital Signs Vital signs: Temp Pulse Resp BP Pulse Ox 98.7 F 89 16 148/69 H 99 04/15/18 22:43 04/15/18 22:43 04/15/18 22:43 04/15/18 22:43 04/15/18 22:43 - Laboratory Result Diagrams: 04/16/18 00:40 04/16/18 00:40 Laboratory results interpreted by me: 04/16/18 00:40 WBC 12.3 H RBC 3.70 L Hgb 10.5 L Hct 31.7 L RDW 14.5 H Absolute Neutrophils 8.9 H - EKG Interpretation by Me Additional EKG results interpreted by me: 04/15/18 23:47 EKG is reviewed and interpreted by me. EKG shows sinus rhythm with a rate of [address] segment elevation or depression. No ischemic T-wave inversions. TN interval, QRS duration, QTc intervals are within normal range. Old EKG for comparison is from July 05, 2017. Discharge - Discharge Clinical Impression: Headache Qualifiers: Headache type: unspecified Headache chronicity pattern: acute headache Intractability: not intractable Qualified Code(s): R51 - Headache Condition: Good Disposition: HOME, SELF-CARE Additional Instructions: Please call Dr. Abdalla to discuss with him if he feels that there needs to be any adjustment in your Isosorbide medication being that it makes your headaches worse. Please follow up with Dr. Moore in a week as scheduled to discuss your symptoms about the belching and difficulty swallowing. Please return to the ER immediately if you get recurrent headaches not improved with the Reglan, fevers , chest pain, difficulty breathing, vomiting or spitting up of blood, or if you feel that you are worsening in any way. Please wait to drive after taking the Reglan as it may make you sleepy. Prescriptions: Bisoprolol/Hydrochlorothiazide [Bisoprolol-Hctz 5-6.25 mg Tab] 1 each PO DAILY # 14 tablet Metoclopramide HCl [Reglan 10 mg Tablet] 1 tab PO ASDIR PRN #25 tablet PRN Reason: Referrals: JULIAN ABDALLA MD [EMERITUS] - Follow up in 3-5 days
--- NOTE | 2018-04-16 00:18 | RADIOLOGY REPORT (SQ) ---
EXAM DESCRIPTION: CT HEAD WITHOUT IV CONTRAST COMPLETED DATE/TME: 04/15/2018 23:27 CLINICAL HISTORY: headache COMPARISON: None available TECHNIQUE: Axial CT of the head obtained from the skull apex to the skull base without contrast. FINDINGS: No acute intracranial hemorrhage identified. No mass, mass effect, shift of the midline, abnormal extra-axial fluid collection or CT evidence of acute ischemic change identified. The ventricular system is unremarkable. No acute abnormalities of the supratentorial white matter, basal ganglia, cerebellum, or brainstem. The visualized paranasal sinuses and the mastoids are clear. No skull fracture identified. Visualized orbits and globes are unremarkable. DLP:1043.77 mGy-cm IMPRESSION: 1. No acute intracranial abnormality identified. This exam was performed according to our departmental dose-optimization program, which includes automated exposure control, adjustment of the mA and/or kV according to patient size and/or use of iterative reconstruction technique.
--- NOTE | 2018-04-16 00:24 | RADIOLOGY REPORT (SQ) ---
EXAM DESCRIPTION: XR CHEST 1 VIEW COMPLETED DATE/TME: 04/15/2018 23:27 CLINICAL HISTORY: 62 years, Female, difficulty swallowing COMPARISON: 07/05/2017 NUMBER OF VIEWS: One TECHNIQUE: PA LIMITATIONS: None. FINDINGS: Cardiomediastinal silhouette is within normal limits. No lung consolidate or pleural effusion. No pneumothorax. Osseous structures are without acute finding IMPRESSION: No acute chest finding. 2010 [employer]- All Rights Reserved
[2018-04-16 01:19] LABS: ABSOLUTE BASOPHILS # (AUTO) 0.1 10^3/uL (0.0-0.2); ABSOLUTE EOSINOPHILS # (AUTO) 0.1 10^3/uL (0.0-0.6); ABSOLUTE LYMPHOCYTES (AUTO) 2.4 10^3/uL (0.5-4.7); ABSOLUTE MONOCYTES (AUTO) 0.8 10^3/uL (0.1-1.4); ABSOLUTE NEUT (AUTO) 8.9 10^3/uL (1.7-8.2); BASOPHILS % (AUTO) 0.9 % (0-2); EOSINOPHILS % (AUTO) 0.7 % (0-6); HEMATOCRIT 31.7 % (36.0-47.0); HEMOGLOBIN 10.5 g/dL (12.0-15.5); LYMPHOCYTES % (AUTO) 19.2 % (13-45); MEAN CORPUSCULAR HEMOGLOBIN 28.3 pg (27.0-33.4); MEAN CORPUSCULAR VOLUME 86 fl (80-97); MONOCYTES % (AUTO) 6.7 % (3-13); PLATELET COUNT 318 10^3/uL (150-450); RED CELL DISTRIBUTION WIDTH 14.5 % (11.5-14.0); SEGMENTED NEUTROPHILS % (AUTO) 72.5 % (42-78); TOTAL CELLS COUNTED % (AUTO) 100 %; WHITE BLOOD COUNT 12.3 10^3/uL (4.0-10.5)
[2018-04-16 01:41] LABS: ANION GAP 12 (5-19); BLOOD UREA NITROGEN 18 mg/dL (7-20); CALCIUM 9.6 mg/dL (8.4-10.2); CARBON DIOXIDE 27 mmol/L (22-30); CHLORIDE 103 mmol/L (98-107); GLUCOSE 83 mg/dL (75-110); POTASSIUM 3.9 mmol/L (3.6-5.0)
[2018-04-16] MEDS ORDERED: FENTANYL CITRATE INJ/PF 100 MCG/2 ML AMPUL IV ONE (02:40)
[2018-04-16] MEDS ORDERED: NORMAL SALINE 500 ML IV ONE (02:41)
--- NOTE | 2018-04-16 04:02 | RADIOLOGY REPORT (SQ) ---
EXAM DESCRIPTION: CT HEAD ANGIOGRAPHY WITH IV CONTRAST COMPLETED DATE/TME: 04/16/2018 02:40 CLINICAL HISTORY: 62 years, Female, headache COMPARISON: None. TECHNIQUE: CT images of the head obtained following the uncomplicated intravenous administration of 70 mL of Isovue-370. 3-D/MIP reformatted images available. All CT scanners at this facility use dose modulation, iterative reconstruction, and/or weight based dosing when appropriate to reduce radiation dose to as low as reasonably achievable (ALARA). [facility]: Dose Right [facility]: CareDose [facility]: Dose Right [facility]: Teradose 4D [facility]: [employer] LIMITATIONS: FINDINGS: The intracranial internal carotid arteries have normal course and caliber bifurcate into patent A1 and M1 segments of the anterior and middle cerebral arteries. The anterior communicating artery is patent. The posterior communicating arteries are patent. No aneurysm identified. No evidence of stenosis or occlusion. No peripheral vascular pruning in any arterial territory. The intracranial vertebral arteries are widely patent and combined to form a patent basilar artery. The basilar artery bifurcates into patent P1 segments of the posterior cerebral arteries. No evidence of aneurysm, stenosis, or occlusion. Visualized orbits and globes are unremarkable. Paranasal sinuses and mastoid air cells are well aerated. IMPRESSION: 1. No abnormality in the intracranial vasculature identified. TECHNICAL DOCUMENTATION: Quality ID # 436: Final reports with documentation of one or more dose reduction techniques (e.g., Automated exposure control, adjustment of the mA and/or kV according to patient size, use of iterative reconstruction technique) 2010 [employer]- All Rights Reserved
[2018-04-16 04:41] VITALS: BP 129/68
--- NOTE | 2018-04-16 09:04 | EKG REPORT ---
SEVERITY:- BORDERLINE ECG - SINUS RHYTHM PROBABLE LEFT ATRIAL ABNORMALITY : Confirmed by: Ana Florian 16-Apr-2018 09:03:27
== END 2018-04-16 04:41 | disposition home or self-care (01) ==
LOC: ER 21:18
DX: R51 Headache (principal); K21.9 Gastro-esophageal reflux disease without esophagitis; Z79.899 Other long term (current) drug therapy; R14.2 Eructation; R09.89 Other specified symptoms and signs involving the circulatory and respiratory systems; R06.02 Shortness of breath; I10 Essential (primary) hypertension; J45.909 Unspecified asthma, uncomplicated; E11.9 Type 2 diabetes mellitus without complications
CPT/HCPCS: 93005; 99285; 96361; 96374; 96375; 36415; 83735; 85025; 80048; 71045; 70450; 70496; 93010; J1200; J3010; J2765; J7040

== ENCOUNTER → 2018-04-18 | Outpatient (CLI) | payer MEDICARE, OTHER | LOC: OD 16:27 | PROVIDERS: ATTEND Internal Medicine Cardiovascular Disease | DX: R51 Headache (principal) | CPT/HCPCS: 36415; 85652 ==

== ENCOUNTER → 2018-05-04 | Outpatient (CLI) | payer MEDICARE, OTHER ==
[2018-05-04 15:58] LABS: HEMATOCRIT 32.7 % (36.0-47.0); HEMOGLOBIN 10.9 g/dL (12.0-15.5); MEAN CORPUSCULAR HEMOGLOBIN 28.6 pg (27.0-33.4); MEAN CORPUSCULAR HGB CONC 33.2 g/dL (32.0-36.0); MEAN CORPUSCULAR VOLUME 86 fl (80-97); PLATELET COUNT 368 10^3/uL (150-450); WHITE BLOOD COUNT 10.4 10^3/uL (4.0-10.5)
[2018-05-04 16:06] LABS: INTERNATIONAL RATION (INR) 0.83; PROTHROMBIN TIME 11.9 SEC (11.4-15.4)
[2018-05-04 16:07] LABS: PARTIAL THROMBOPLASTIN TIME 32.4 SEC (23.5-35.8)
[2018-05-04 16:15] LABS: ANION GAP 14 (5-19); BLOOD UREA NITROGEN 17 mg/dL (7-20); CALCIUM 9.9 mg/dL (8.4-10.2); CARBON DIOXIDE 25 mmol/L (22-30); CHLORIDE 103 mmol/L (98-107); GLUCOSE 76 mg/dL (75-110); POTASSIUM 3.9 mmol/L (3.6-5.0)
== END ==
LOC: OD 15:12
PROVIDERS: ATTEND Internal Medicine Cardiovascular Disease
DX: Z01.810 Encounter for preprocedural cardiovascular examination (principal); R07.9 Chest pain, unspecified; R07.89 Other chest pain; Z79.01 Long term (current) use of anticoagulants
CPT/HCPCS: 36415; 80048; 85027; 85610; 85730

== ENCOUNTER → 2018-09-03 | Outpatient (CLI) | payer MEDICARE, OTHER ==
[2018-09-03 12:51] LABS: ALANINE AMINOTRANSFERASE 20 U/L (9-52); ALBUMIN 4.1 g/dL (3.5-5.0); ALKALINE PHOSPHATASE 70 U/L (38-126); ANION GAP 8 (5-19); ASPARTATE AMINO TRANSFERASE 16 U/L (14-36); BILIRUBIN,DIRECT 0.1 mg/dL (0.0-0.4); BILIRUBIN,TOTAL 0.6 mg/dL (0.2-1.3); BLOOD UREA NITROGEN 16 mg/dL (7-20); CALCIUM 9.5 mg/dL (8.4-10.2); CARBON DIOXIDE 28 mmol/L (22-30); CHLORIDE 102 mmol/L (98-107); GLUCOSE 125 mg/dL (75-110); SODIUM 138.4 mmol/L (137-145); TOTAL PROTEIN 7.1 g/dL (6.3-8.2); TRIGLYCERIDES 79 mg/dL (<150)
[2018-09-03 13:01] LABS: DIRECT LDL 60 mg/dL (<100)
[2018-09-03 13:20] LABS: POTASSIUM 4.1 mmol/L (3.6-5.0)
== END ==
LOC: OD 11:18
PROVIDERS: ATTEND Internal Medicine Cardiovascular Disease
DX: I10 Essential (primary) hypertension (principal); Z79.899 Other long term (current) drug therapy; E78.00 Pure hypercholesterolemia, unspecified; E83.42 Hypomagnesemia; M35.3 Polymyalgia rheumatica; R07.9 Chest pain, unspecified
CPT/HCPCS: 36415; 80048; 80061; 80076; 83735; 85652

== ENCOUNTER → 2018-09-22 | Outpatient (CLI) | payer MEDICARE, OTHER ==
[2018-09-22 13:07] LABS: ANION GAP 10 (5-19); BLOOD UREA NITROGEN 16 mg/dL (7-20); CALCIUM 9.5 mg/dL (8.4-10.2); CARBON DIOXIDE 27 mmol/L (22-30); CHLORIDE 101 mmol/L (98-107); GLUCOSE 138 mg/dL (75-110); POTASSIUM 4.1 mmol/L (3.6-5.0); SODIUM 138.1 mmol/L (137-145)
== END ==
LOC: OD 11:15
PROVIDERS: ATTEND Physician Assistant
DX: I10 Essential (primary) hypertension (principal); Z79.899 Other long term (current) drug therapy
CPT/HCPCS: 36415; 80048

== ENCOUNTER → 2018-12-20 | Outpatient (CLI) | payer MEDICARE, OTHER ==
[2018-12-20 11:15] LABS: ALANINE AMINOTRANSFERASE 30 U/L (9-52); ALKALINE PHOSPHATASE 73 U/L (38-126); ANION GAP 13 (5-19); ASPARTATE AMINO TRANSFERASE 17 U/L (14-36); BILIRUBIN,DIRECT 0.2 mg/dL (0.0-0.4); BILIRUBIN,TOTAL 0.6 mg/dL (0.2-1.3); BLOOD UREA NITROGEN 21 mg/dL (7-20); CALCIUM 9.8 mg/dL (8.4-10.2); CARBON DIOXIDE 27 mmol/L (22-30); CHLORIDE 99 mmol/L (98-107); GLUCOSE 149 mg/dL (75-110); SODIUM 138.8 mmol/L (137-145); TOTAL PROTEIN 7.1 g/dL (6.3-8.2); TRIGLYCERIDES 94 mg/dL (<150)
[2018-12-20 11:26] LABS: DIRECT LDL 59 mg/dL (<100)
== END ==
LOC: OD 10:26
PROVIDERS: ATTEND Physician Assistant
DX: I10 Essential (primary) hypertension (principal); E78.00 Pure hypercholesterolemia, unspecified; Z79.899 Other long term (current) drug therapy
CPT/HCPCS: 36415; 80048; 80061; 80076

== ENCOUNTER → 2019-03-15 | Outpatient (CLI) | payer MEDICARE, OTHER ==
[2019-03-15 12:52] LABS: ALANINE AMINOTRANSFERASE 29 U/L (9-52); ALBUMIN 4.2 g/dL (3.5-5.0); ALKALINE PHOSPHATASE 75 U/L (38-126); ANION GAP 10 (5-19); ASPARTATE AMINO TRANSFERASE 18 U/L (14-36); BILIRUBIN,DIRECT 0.2 mg/dL (0.0-0.4); BILIRUBIN,TOTAL 0.5 mg/dL (0.2-1.3); BLOOD UREA NITROGEN 17 mg/dL (7-20); CALCIUM 9.7 mg/dL (8.4-10.2); CARBON DIOXIDE 31 mmol/L (22-30); CHLORIDE 99 mmol/L (98-107); CHOLESTEROL 117.57 mg/dL (0-200); GLUCOSE 160 mg/dL (75-110); POTASSIUM 4.3 mmol/L (3.6-5.0); SODIUM 139.9 mmol/L (137-145); TOTAL PROTEIN 7.2 g/dL (6.3-8.2); TRIGLYCERIDES 101 mg/dL (<150)
[2019-03-15 13:03] LABS: DIRECT LDL 62 mg/dL (<100)
== END ==
LOC: OD 11:42
PROVIDERS: ATTEND Physician Assistant
DX: I10 Essential (primary) hypertension (principal); E83.42 Hypomagnesemia; E78.00 Pure hypercholesterolemia, unspecified; Z79.899 Other long term (current) drug therapy
CPT/HCPCS: 36415; 80048; 80061; 80076; 83735

== ENCOUNTER → 2019-06-15 | Outpatient (CLI) | payer MEDICARE, OTHER ==
[2019-06-15 10:44] LABS: ANION GAP 12 (5-19); BLOOD UREA NITROGEN 18 mg/dL (7-20); CALCIUM 9.7 mg/dL (8.4-10.2); CARBON DIOXIDE 28 mmol/L (22-30); CHLORIDE 98 mmol/L (98-107); GLUCOSE 168 mg/dL (75-110); POTASSIUM 4.2 mmol/L (3.6-5.0)
== END ==
LOC: OD 09:25
PROVIDERS: ATTEND Physician Assistant
DX: E83.42 Hypomagnesemia (principal); I10 Essential (primary) hypertension; Z79.899 Other long term (current) drug therapy
CPT/HCPCS: 36415; 80048; 83735

== ENCOUNTER → 2019-07-16 | Outpatient (CLI) | payer MEDICARE, OTHER ==
[2019-07-16 11:36] LABS: ABSOLUTE BASOPHILS # (AUTO) 0.1 10^3/uL (0.0-0.2); ABSOLUTE EOSINOPHILS # (AUTO) 0.2 10^3/uL (0.0-0.6); ABSOLUTE LYMPHOCYTES (AUTO) 2.5 10^3/uL (0.5-4.7); ABSOLUTE MONOCYTES (AUTO) 0.7 10^3/uL (0.1-1.4); ABSOLUTE NEUT (AUTO) 5.3 10^3/uL (1.7-8.2); BASOPHILS % (AUTO) 0.8 % (0-2); EOSINOPHILS % (AUTO) 2.6 % (0-6); HEMATOCRIT 34.3 % (36.0-47.0); HEMOGLOBIN 11.2 g/dL (12.0-15.5); LYMPHOCYTES % (AUTO) 28.5 % (13-45); MEAN CORPUSCULAR HEMOGLOBIN 28.1 pg (27.0-33.4); MEAN CORPUSCULAR HGB CONC 32.6 g/dL (32.0-36.0); MEAN CORPUSCULAR VOLUME 86 fl (80-97); MONOCYTES % (AUTO) 7.5 % (3-13); PLATELET COUNT 293 10^3/uL (150-450); RED BLOOD COUNT 3.98 10^6/uL (3.72-5.28); RED CELL DISTRIBUTION WIDTH 13.9 % (11.5-14.0); SEGMENTED NEUTROPHILS % (AUTO) 60.6 % (42-78); TOTAL CELLS COUNTED % (AUTO) 100 %; WHITE BLOOD COUNT 8.7 10^3/uL (4.0-10.5)
[2019-07-16 11:38] LABS: ADD MANUAL MICROSCOPIC YES; APPEARANCE,URINE CLEAR; BILIRUBIN,URINE NEGATIVE (NEGATIVE); COLOR,URINE YELLOW; GLUCOSE, URINE NEGATIVE (NEGATIVE); KETONES,URINE NEGATIVE (NEGATIVE); LEUKOCYTE ESTERASE,URINE NEGATIVE (NEGATIVE); NITRITE,URINE NEGATIVE (NEGATIVE); PROTEIN,URINE NEGATIVE (NEGATIVE); URINE SPECIFIC GRAVITY 1.024; UROBILINOGEN,URINE NEGATIVE mg/dL (<2.0)
[2019-07-16 11:47] LABS: BACTERIA,URINE 1+ /HPF
[2019-07-16 12:09] LABS: ANION GAP 13 (5-19); BLOOD UREA NITROGEN 23 mg/dL (7-20); CALCIUM 9.8 mg/dL (8.4-10.2); CARBON DIOXIDE 25 mmol/L (22-30); CHLORIDE 103 mmol/L (98-107); GLUCOSE 148 mg/dL (75-110); POTASSIUM 4.1 mmol/L (3.6-5.0)
--- NOTE | 2019-07-16 12:19 | RADIOLOGY REPORT (SQ) ---
EXAM DESCRIPTION: CHEST PA/LATERAL COMPLETED DATE/TIME: 07/16/2019 11:21 am REASON FOR STUDY: PRE-OP COMPARISON: PA view of the chest from 04/16/2018. EXAM PARAMETERS: NUMBER OF VIEWS: two views TECHNIQUE: Digital Frontal and Lateral radiographic views of the chest acquired. RADIATION DOSE: NA LIMITATIONS: none FINDINGS: LUNGS AND PLEURA: No consolidation, pleural effusion or pneumothorax. MEDIASTINUM AND HILAR STRUCTURES: No mediastinal or hilar contour abnormality. HEART AND VASCULAR STRUCTURES: The cardiac silhouette and pulmonary vasculature are within normal rodrigues its. BONES: No acute findings. HARDWARE: None in the chest. OTHER: No other finding. IMPRESSION: No acute cardiopulmonary process. TECHNICAL DOCUMENTATION: JOB ID: [id number] [employer]- All Rights Reserved Reading location - IP/workstation name: [email or web address]
--- NOTE | 2019-07-16 13:51 | EKG REPORT ---
SEVERITY:- NORMAL ECG - SINUS RHYTHM : Confirmed by: King Lucas MD 16-Jul-2019 13:50:58
== END ==
LOC: OD 10:52
PROVIDERS: ATTEND Orthopaedic Surgery
DX: Z01.810 Encounter for preprocedural cardiovascular examination (principal); Z01.811 Encounter for preprocedural respiratory examination; Z01.812 Encounter for preprocedural laboratory examination; M17.11 Unilateral primary osteoarthritis, right knee; E11.9 Type 2 diabetes mellitus without complications
CPT/HCPCS: 36415; 71046; 80048; 81001; 83036; 85025; 93005; 93010

== ENCOUNTER → 2019-07-29 | Outpatient (CLI) | payer MEDICARE, OTHER ==
--- NOTE | 2019-07-29 14:58 | WOMENS IMAGING REPORT ---
EXAM DESCRIPTION: 3D SCREENING MAMMO BILAT COMPLETED DATE/TIME: 07/29/2019 2:04 pm REASON FOR STUDY: Z12.31 ENCOUNTER FOR SCREENING MAMMOGRAM FOR MALIGNANT NEOPLASM OF BREAST Z12.31 ENCNTR SCREEN MAMMOGRAM FOR MALIGNANT NEOPLASM OF FRANKY COMPARISON: 07/19/2018 and 07/18/2017. EXAM PARAMETERS: Views: Standard craniocaudal and mediolateral oblique views of each breast recorded using digital acquisition and breast tomosynthesis. Read with the assistance of CAD. .[facility] - R2 Deck Worker Version 9.2 LIMITATIONS: None. FINDINGS: No suspicious masses, suspicious calcifications or architectural distortion. No areas of c oncern. IMPRESSION: NEGATIVE MAMMOGRAM. BIRADS 1. BREAST DENSITY: b. There are scattered areas of fibroglandular density. BIRAD: ASSESSMENT: 1 NEGATIVE RECOMMENDATION: ROUTINE SCREENING COMMENT: The patient has been notified of the results by letter per MQSA requirements. Additional no tification policies are in place for contacting patient with suspicious or incomplete findings. Quality ID #225: The [employer] recommends an annual screening mammogram for women aged 40 years or over. This facility utilizes a reminder system to ensure that all patients receive reminder letters, and/or direct phone calls for appointments. This includes reminders for routine scr eening mammograms, diagnostic mammograms, or other Breast Imaging Interventions when appropriate. Th is patient will be placed in the appropriate reminder system. TECHNICAL DOCUMENTATION: FINDING NUMBER: (1) ASSESSMENT: (1) JOB ID: [id number] [employer]- All Rights Reserved Reading location - IP/workstation name: [email or web address]
== END ==
LOC: WI 13:52
PROVIDERS: ATTEND Family Medicine
DX: Z12.31 Encounter for screening mammogram for malignant neoplasm of breast (principal)
CPT/HCPCS: 77063; 77067

== ENCOUNTER → 2019-09-23 | Outpatient (CLI) | payer MEDICARE, OTHER ==
[2019-09-23 09:28] LABS: ALBUMIN 4.1 g/dL (3.5-5.0); ALKALINE PHOSPHATASE 63 U/L (38-126); ANION GAP 12 (5-19); ASPARTATE AMINO TRANSFERASE 25 U/L (14-36); BILIRUBIN,DIRECT 0.3 mg/dL (0.0-0.4); BILIRUBIN,TOTAL 0.4 mg/dL (0.2-1.3); BLOOD UREA NITROGEN 27 mg/dL (7-20); CALCIUM 10.2 mg/dL (8.4-10.2); CARBON DIOXIDE 27 mmol/L (22-30); CHLORIDE 102 mmol/L (98-107); CHOLESTEROL 133.77 mg/dL (0-200); GLUCOSE 84 mg/dL (75-110); POTASSIUM 3.8 mmol/L (3.6-5.0); TOTAL PROTEIN 7.4 g/dL (6.3-8.2); TRIGLYCERIDES 101 mg/dL (<150)
[2019-09-23 09:39] LABS: DIRECT LDL 70 mg/dL (<100)
== END ==
LOC: OD 07:51
PROVIDERS: ATTEND Physician Assistant
DX: E78.00 Pure hypercholesterolemia, unspecified (principal); I10 Essential (primary) hypertension; E83.42 Hypomagnesemia; Z79.899 Other long term (current) drug therapy
CPT/HCPCS: 36415; 80048; 80061; 80076; 83735

== ENCOUNTER → 2020-03-25 | Outpatient (CLI) | payer MEDICARE, OTHER ==
[2020-03-25 09:20] LABS: ALBUMIN 4.2 g/dL (3.5-5.0); ALKALINE PHOSPHATASE 61 U/L (38-126); ANION GAP 6 (5-19); ASPARTATE AMINO TRANSFERASE 20 U/L (14-36); BILIRUBIN,TOTAL 0.3 mg/dL (0.2-1.3); BLOOD UREA NITROGEN 26 mg/dL (7-20); CALCIUM 9.7 mg/dL (8.4-10.2); CARBON DIOXIDE 30 mmol/L (22-30); CHLORIDE 101 mmol/L (98-107); CHOLESTEROL 132.25 mg/dL (0-200); GLUCOSE 103 mg/dL (75-110); TOTAL PROTEIN 7.3 g/dL (6.3-8.2); TRIGLYCERIDES 67 mg/dL (<150)
[2020-03-25 09:31] LABS: DIRECT LDL 54 mg/dL (<100)
== END ==
LOC: OD 08:09
PROVIDERS: ATTEND Physician Assistant
DX: E67.3 Hypervitaminosis D (principal); I10 Essential (primary) hypertension; E78.00 Pure hypercholesterolemia, unspecified; Z79.899 Other long term (current) drug therapy
CPT/HCPCS: 36415; 80048; 80061; 80076; 82306

== ENCOUNTER 2020-06-06 13:43 | Emergency (ER) | payer MEDICARE, OTHER ==
[2020-06-06] MEDS ORDERED: ACETAMINOPHEN 325 MG TABLET PO ONE (14:25)
--- NOTE | 2020-06-06 14:27 | ER Document Report ---
ED Medical Screen (RME) - General Stated Complaint: BACK PAIN Time Seen by Provider: 06/06/20 14:19 Mode of Arrival: Ambulatory Information source: Patient Notes: HPI; 64-year-old female presents to the emergency room complaining of left lower flank and back pain for the past 2 days. She denies any trauma or injury. History of previous back surgeries. Complains of urinary frequency but no dysuria. Denies any loss of control of bowels or bladder. No saddle anesthesia. Has not taken any medications for her symptoms. Drove self to the emergency room. PE: Alert and oriented x3. Lungs: Clear to auscultation without rales, rhonchi, wheezes. Heart: Regular rate rhythm without murmurs, rubs, gallops. Left CVA tenderness on palpation. Ambulatory with a steady gait. I have greeted and performed a rapid initial assessment of this patient. A comprehensive ED assessment and evaluation of the patient, analysis of test results and completion of the medical decision making process will be conducted by additional ED providers. I have specifically instructed the patient or family members with the patient to immediately return to any nursing staff should anything change in the patient's condition or with their chief complaint. TRAVEL OUTSIDE OF THE [place] IN LAST 30 DAYS: No - Related Data Allergies/Adverse Reactions: No Known Allergies Allergy (Verified 07/24/17 07:04) Past Medical History - Social History Family history: Reviewed & Not Pertinent - Past Medical History Cardiac Medical History: Reports: Hx Hypertension Denies: Hx Atrial Fibrillation, Hx Congestive Heart Failure, Hx Coronary Artery Disease, Hx Heart Attack, Hx Hypercholesterolemia, Hx Peripheral Vascular Disease, Hx Pulmonary Embolism, Hx Heart Murmur Pulmonary Medical History: Reports: Hx Asthma, Hx Bronchitis, Hx Sleep Apnea - uses machine at home Denies: Hx COPD, Hx Pneumonia, Hx Respiratory Failure, Hx Tuberculosis Endocrine Medical History: Reports: Hx Diabetes Mellitus Type 2. Denies: Hx Graves' Disease, Hx Hyperthyroidism, Hx Hypothyroidism Renal/ Medical History: Denies: Hx End Stage Renal Disease, Hx Kidney Stones, Hx Peritoneal Dialysis Malignancy Medical History: Denies: Hx Lung Cancer GI Medical History: Reports: Hx Gastroesophageal Reflux Disease. Denies: Hx Crohn's Disease, Hx Hiatal Hernia, Hx Irritable Bowel, Hx Liver Failure, Hx Pancreatitis, Hx Ulcer Musculoskeltal Medical History: Reports Hx Arthritis, Denies Hx Fibromyalgia, Denies Hx Muscular Dystrophy, Reports Hx Musculoskeletal Deformity, Reports Hx Musculoskeletal Trauma, Denies Hx Systemic Lupus Erythematosus Psychiatric Medical History: Denies: Hx Bipolar Disorder, Hx Depression, Hx Post Traumatic Stress Disorder, Hx Schizophrenia Traumatic Medical History: Denies: Hx Fractures Past Surgical History: Reports: Hx Hysterectomy, Hx Orthopedic Surgery - back; right foot; bilateral wrist for carpal tunnel, bilateral knee replace. Denies: Hx Appendectomy, Hx Bowel Surgery, Hx Section, Hx Cholecystectomy, Hx Colostomy, Hx Coronary Artery Bypass Graft, Hx Gastric Bypass Surgery, Hx Herniorrhaphy, Hx Mastectomy, Hx Pacemaker, Hx Tonsillectomy, Hx Tubal Ligation - Immunizations Immunizations up to date: No Hx Diphtheria, Pertussis, Tetanus Vaccination: No Physical Exam - Vital signs Vitals: Temp Pulse Resp BP Pulse Ox 97.8 F 58 L 16 124/62 98 06/06/20 13:47 06/06/20 13:47 06/06/20 13:47 06/06/20 13:47 06/06/20 13:47 Course - Vital Signs Vital signs: Temp Pulse Resp BP Pulse Ox 97.8 F 58 L 16 124/62 98 06/06/20 13:47 06/06/20 13:47 06/06/20 13:47 06/06/20 13:47 06/06/20 13:47
[2020-06-06 15:05] LABS: APPEARANCE,URINE CLEAR; BILIRUBIN,URINE NEGATIVE (NEGATIVE); COLOR,URINE STRAW; GLUCOSE, URINE NEGATIVE (NEGATIVE); KETONES,URINE NEGATIVE (NEGATIVE); LEUKOCYTE ESTERASE,URINE NEGATIVE (NEGATIVE); NITRITE,URINE NEGATIVE (NEGATIVE); PROTEIN,URINE NEGATIVE (NEGATIVE); URINE SPECIFIC GRAVITY 1.011; UROBILINOGEN,URINE NEGATIVE mg/dL (<2.0)
[2020-06-06 15:06] LABS: ALBUMIN 4.3 g/dL (3.5-5.0); ALKALINE PHOSPHATASE 54 U/L (38-126); ANION GAP 8 (5-19); ASPARTATE AMINO TRANSFERASE 21 U/L (14-36); BILIRUBIN,DIRECT 0.1 mg/dL (0.0-0.4); BILIRUBIN,TOTAL 0.7 mg/dL (0.2-1.3); BLOOD UREA NITROGEN 20 mg/dL (7-20); CALCIUM 10.1 mg/dL (8.4-10.2); CARBON DIOXIDE 30 mmol/L (22-30); CHLORIDE 103 mmol/L (98-107); GLUCOSE 109 mg/dL (75-110); POTASSIUM 4.5 mmol/L (3.6-5.0); TOTAL PROTEIN 7.2 g/dL (6.3-8.2)
[2020-06-06 15:10] LABS: ABSOLUTE EOSINOPHILS # (AUTO) 0.1 10^3/uL (0.0-0.6); ABSOLUTE LYMPHOCYTES (AUTO) 2.3 10^3/uL (0.5-4.7); ABSOLUTE MONOCYTES (AUTO) 0.6 10^3/uL (0.1-1.4); ABSOLUTE NEUT (AUTO) 4.2 10^3/uL (1.7-8.2); BASOPHILS % (AUTO) 0.5 % (0-2); EOSINOPHILS % (AUTO) 1.8 % (0-6); HEMATOCRIT 34.1 % (36.0-47.0); HEMOGLOBIN 11.6 g/dL (12.0-15.5); LYMPHOCYTES % (AUTO) 31.5 % (13-45); MEAN CORPUSCULAR HEMOGLOBIN 29.5 pg (27.0-33.4); MEAN CORPUSCULAR HGB CONC 34.2 g/dL (32.0-36.0); MEAN CORPUSCULAR VOLUME 86 fl (80-97); MONOCYTES % (AUTO) 7.8 % (3-13); PLATELET COUNT 301 10^3/uL (150-450); RED BLOOD COUNT 3.95 10^6/uL (3.72-5.28); RED CELL DISTRIBUTION WIDTH 14.5 % (11.5-14.0); SEGMENTED NEUTROPHILS % (AUTO) 58.4 % (42-78); TOTAL CELLS COUNTED % (AUTO) 100 %; WHITE BLOOD COUNT 7.2 10^3/uL (4.0-10.5)
--- NOTE | 2020-06-06 15:22 | RADIOLOGY REPORT (SQ) ---
EXAM DESCRIPTION: CT ABD/PELVIS NO ORAL OR IV IMAGES COMPLETED DATE/TIME: 06/06/2020 2:59 pm REASON FOR STUDY: flank pain COMPARISON: CT abdomen and pelvis 09/13/2016 TECHNIQUE: CT scan of the abdomen and pelvis performed without intravenous or oral contrast. Images reviewed with lung, soft tissue, and bone windows. Reconstructed coronal and sagittal MPR images revi ewed. All images stored on PACS. All CT scanners at this facility use dose modulation, iterative reconstruction, and/or weight based d osing when appropriate to reduce radiation dose to as low as reasonably achievable (ALARA). [facility]: Dose Right [facility]: CareDose [facility]: Dose Right [facility]: Teradose 4D [facility]: [employer] RADIATION DOSE: CT Rad equipment meets quality standard of care and radiation dose reduction techniq ues were employed. CTDIvol: 11.8 mGy. DLP: 586 mGy-cm.mGy. LIMITATIONS: None. FINDINGS: LOWER CHEST: No significant findings. No nodules or infiltrates. NON-CONTRASTED LIVER, SPLEEN, ADRENALS: Evaluation limited by lack of IV contrast. No identified sign ificant masses. PANCREAS: No masses. No peripancreatic inflammatory changes. GALLBLADDER: No identified stones by CT criteria. No inflammatory changes to suggest cholecystitis. RIGHT KIDNEY AND URETER: No solid masses. No significant calcification. No hydronephrosis or hydroure ter. LEFT KIDNEY AND URETER: No solid masses. No significant calcification. No hydronephrosis or hydrouret er. AORTA AND RETROPERITONEUM: No aneurysm. No retroperitoneal masses or adenopathy. BOWEL AND PERITONEAL CAVITY: No obvious masses or inflammatory changes. No free fluid. Moderate colo kamla stool burden. Scattered colonic diverticular are present without CT evidence of diverticulitis. APPENDIX: Not visualized. PELVIS, BLADDER, AND ABDOMINAL WALL:No abnormal masses. No free fluid. Bladder normal. BONES: Left total hip arthroplasty is noted. OTHER: No other significant finding. IMPRESSION: No urolithiasis or evidence of obstructive uropathy. Colonic diverticulosis without CT evidence of diverticulitis. TECHNICAL DOCUMENTATION: JOB ID: [id number] Quality ID # 436: Final reports with documentation of one or more dose reduction techniques (e.g., Au tomated exposure control, adjustment of the mA and/or kV according to patient size, use of iterative reconstruction technique) 2010 [employer]- All Rights Reserved Reading location - IP/workstation name: [email or web address]
--- NOTE | 2020-06-06 16:02 | ER Document Report ---
ED General - General Chief Complaint: Back Pain Stated Complaint: BACK PAIN Time Seen by Provider: 06/06/20 14:19 Mode of Arrival: Ambulatory Information source: Patient Notes: This 64-year-old woman presents to the emergency department with a complaint of lower back pain. Apparently last night she had increasing pain on the left side with sharp gripping episodes of pain. She has had a history of prior back surgery, denies any recent injury. She presented to the emergency department with concerns of a possible urinary tract infection or kidney related problems. She denies fever, dysuria, nausea or vomiting. She is not allergic to any medications and had taken some Tylenol for pain which seemed to have improved her symptoms. TRAVEL OUTSIDE OF THE [place] IN LAST 30 DAYS: No - Related Data Allergies/Adverse Reactions: No Known Allergies Allergy (Verified 07/24/17 07:04) Past Medical History - General Information source: Patient - Social History Smoking Status: Never Smoker Frequency of alcohol use: None Drug Abuse: None Family History: Reviewed & Not Pertinent Patient has homicidal ideation: No - Past Medical History Cardiac Medical History: Reports: Hx Hypertension Denies: Hx Atrial Fibrillation, Hx Congestive Heart Failure, Hx Coronary Artery Disease, Hx Heart Attack, Hx Hypercholesterolemia, Hx Peripheral Vascular Disease, Hx Pulmonary Embolism, Hx Heart Murmur Pulmonary Medical History: Reports: Hx Asthma, Hx Bronchitis, Hx Sleep Apnea - uses machine at home Denies: Hx COPD, Hx Pneumonia, Hx Respiratory Failure, Hx Tuberculosis Endocrine Medical History: Reports: Hx Diabetes Mellitus Type 2. Denies: Hx Graves' Disease, Hx Hyperthyroidism, Hx Hypothyroidism Renal/ Medical History: Denies: Hx End Stage Renal Disease, Hx Kidney Stones, Hx Peritoneal Dialysis Malignancy Medical History: Denies: Hx Lung Cancer GI Medical History: Reports: Hx Gastroesophageal Reflux Disease. Denies: Hx Crohn's Disease, Hx Hiatal Hernia, Hx Irritable Bowel, Hx Liver Failure, Hx Pancreatitis, Hx Ulcer Musculoskeletal Medical History: Reports Hx Arthritis, Denies Hx Fibromyalgia, Denies Hx Muscular Dystrophy, Reports Hx Musculoskeletal Deformity, Reports Hx Musculoskeletal Trauma, Denies Hx Systemic Lupus Erythematosus Psychiatric Medical History: Denies: Hx Bipolar Disorder, Hx Depression, Hx Post Traumatic Stress Disorder, Hx Schizophrenia Traumatic Medical History: Denies: Hx Fractures Past Surgical History: Reports: Hx Hysterectomy, Hx Orthopedic Surgery - back; right foot; bilateral wrist for carpal tunnel, bilateral knee replace. Denies: Hx Appendectomy, Hx Bowel Surgery, Hx Section, Hx Cholecystectomy, Hx Colostomy, Hx Coronary Artery Bypass Graft, Hx Gastric Bypass Surgery, Hx Herniorrhaphy, Hx Mastectomy, Hx Pacemaker, Hx Tonsillectomy, Hx Tubal Ligation - Immunizations Immunizations up to date: No Hx Diphtheria, Pertussis, Tetanus Vaccination: No Review of Systems - Review of Systems Notes: Constitutional: Negative for fever. HENT: Negative for sore throat. Eyes: Negative for visual changes. Cardiovascular: Negative for chest pain. Respiratory: Negative for shortness of breath. Gastrointestinal: Negative for abdominal pain, vomiting or diarrhea. Genitourinary: Negative for dysuria. Musculoskeletal: + Back pain, see HPI Skin: Negative for rash. Neurological: Negative for headaches, weakness or numbness. 10 point ROS negative except as marked above and in HPI. Physical Exam - Vital signs Vitals: Temp Pulse Resp BP Pulse Ox 97.8 F 58 L 16 124/62 98 06/06/20 13:47 06/06/20 13:47 06/06/20 13:47 06/06/20 13:47 06/06/20 13:47 - Notes Notes: PHYSICAL EXAMINATION: Physical Exam: General: Well-nourished well-developed in no acute distress HEENT: NC/AT, pupils equal round and reactive to light, MM moist,nares clear, o ropharynx clear, airway patent Neck: supple, no adenopathy, no masses. Good range of motion Lungs: clear, no wheezing, no rales no rhonchi CVS: Regular rate and rhythm no murmur gallop or rub Abdomen: Soft, active, nontender, no masses, no hepatosplenomegaly Ext: No edema, clubbing or cyanosis. Back: Tenderness in the left paraspinous muscle group, tightness compared to the right, neurologic is intact with good review Neuro: Alert and responsive, moving all 4 extremities on command, cranial nerves intact, no focal findings Skin: Intact no open lesions, no rash PSYCH: Normal mood, normal affect. Course - Re-evaluation Re-evalutation: 06/06/20 16:[address] scan as well as the labs and have discussed the findings with the patient. There is no significant signs of kidney stone or intra-abdominal pathology. The patient does have diverticulosis without diverticulitis and the CBC, electrolytes and urinalysis are non-diagnostic. I recommended to the patient that we start a muscle relaxant and anti-inflammatory pain medication and she is in agreement with this plan. Notes that she will follow-up with her primary care doctor next week if her symptoms are not improving. - Vital Signs Vital signs: Temp Pulse Resp BP Pulse Ox 97.8 F 58 L 16 124/62 98 06/06/20 13:47 06/06/20 13:47 06/06/20 13:47 06/06/20 13:47 06/06/20 13:47 - Laboratory Result Diagrams: 06/06/20 14:35 06/06/20 14:35 Laboratory results interpreted by me: 06/06/20 14:35 Hgb 11.6 L Hct 34.1 L RDW 14.5 H 06/06/20 16:01 I have reviewed laboratory data and used this information for the treatment decisions regarding the patient. - Diagnostic Test Radiology reviewed: Image reviewed, Reports reviewed Radiology results interpreted by me: 06/06/20 16:02 CT abdomen and pelvis with IV contrast: Diverticulosis without diverticulitis, no renal obstruction or renal pathology noted on CT. Discharge - Discharge Clinical Impression: Lumbar back pain, Lumbar paraspinal muscle spasm Condition: Good Disposition: HOME, SELF-CARE Instructions: Ice Packs ([facility]), Low Back Pain ([facility]) Additional Instructions: You were seen in the emergency department today with left sided greater than right lower back pain. Your CT scan and laboratory data were all negative for urinary etiology for the pain. Exam reveals symptoms suggestive of muscle spasm. You are being discharged with a muscle relaxant and anti-inflammatory pain medications please take these medications as prescribed increase your fluid intake while taking the medications and use a cold compress to the area of shooting pain. You may follow-up with your primary care doctor if needed. If your symptoms are worsening or if you have other concerns you may return to the emergency department for further evaluation and treatment HOME CARE INSTRUCTIONS & INFORMATION: Thank you for choosing us for your medical needs. We hope you're satisfied with the care you received. After you leave, you must properly care for your problem and, at the same time, observe its progress. Any condition can change. Some illnesses can change rapidly over hours or days. If your condition worsens, return to the Emergency Department or see your physician promptly. ABOUT YOUR X-RAYS AND EKG'S: If you had an EKG or X-rays taken, they have been read by the Emergency Physician. The X-rays and EKG's will also be read by a Radiologist or Recep within 24 hours. If discrepancies are noted, you w ill be notified by telephone. Please be certain the ED has a correct telephone number & address where you can be reached. Also, realize that some fractures or abnormalities do not show up on initial X-rays. If your symptoms continue, see your physician. ABOUT YOUR LABORATORY TEST: If you had laboratory tests, the results have been reviewed by the Emergency Physician. Some test results (for example cultures) may not be available for several days. You will be contacted if any test result shows you need additional treatment. Please be certain the ED has a correct telephone number and address where you can be reached. ABOUT YOUR MEDICATIONS: You will receive instructions on how to take your medicine on the prescription label you receive. Additional information may be provided by the Pharmacy. If you have questions afterwards, call the ED for clarification or further instructions. Some prescribed medications may cause drowsiness. Do not perform tasks such as driving a car or operating machinery without consulting your Pharmacist. If you feel you need a refill of pain medic ation, your condition will need re-evaluation. Please do not call for a refill of any medication. ABOUT YOUR SIGNATURE: Signature of this document acknowledges to followin. Understanding that you received emergency treatment and that you may be released before al medical problems are known or treated. Please be certain the ED has a correct phone number & address where you can be reached. 2. Acknowledgement that you will arrange for follow-up care as recommended. 3. Authorization for the Emergency Physician to provide information to your follow-up Physician in order to maximize your care. AT ANY TIME, IF YOUR SYMPTOMS CHANGE SIGNIFICANTLY OR WORSEN OR YOU DEVELOP NEW SYMPTOMS, RETURN TO THE EMERGENCY DEPARTMENT IMMEDIATELY FOR RE-EVALUATION. OUR GOAL IS TO PROVIDE EXCELLENT MEDICAL CARE! WE HOPE THAT WE HAVE MET YOUR EXPECTATIONS DURING YOUR EMERGENCY DEPARTMENT VISIT AND THAT YOU FEEL YOU HAVE RECEIVED EXCELLENT CARE! Prescriptions: Baclofen [Baclofen 10 mg Tablet] 10 mg PO TID PRN #30 tab PRN Reason: Muscle Spasms Naproxen [Naprosyn] 500 mg PO BID PRN #20 tablet PRN Reason: For Pain
[2020-06-06 16:25] VITALS: BP 122/66
== END 2020-06-06 16:24 | disposition home or self-care (01) ==
LOC: ER 13:43
DX: M62.830 Muscle spasm of back (principal); R10.9 Unspecified abdominal pain; I10 Essential (primary) hypertension; Z90.710 Acquired absence of both cervix and uterus
CPT/HCPCS: 99284; 36415; 85025; 80053; 81001; 74176; A9270

== ENCOUNTER → 2020-06-18 | Outpatient (CLI) | payer MEDICARE, OTHER ==
[2020-06-18 11:10] LABS: ALBUMIN 4.1 g/dL (3.5-5.0); ALKALINE PHOSPHATASE 55 U/L (38-126); ANION GAP 7 (5-19); ASPARTATE AMINO TRANSFERASE 21 U/L (14-36); BILIRUBIN,DIRECT 0.2 mg/dL (0.0-0.4); BILIRUBIN,TOTAL 0.6 mg/dL (0.2-1.3); BLOOD UREA NITROGEN 23 mg/dL (7-20); CALCIUM 9.8 mg/dL (8.4-10.2); CARBON DIOXIDE 30 mmol/L (22-30); CHLORIDE 102 mmol/L (98-107); CHOLESTEROL 128.47 mg/dL (0-200); GLUCOSE 107 mg/dL (75-110); TOTAL PROTEIN 6.8 g/dL (6.3-8.2); TRIGLYCERIDES 46 mg/dL (<150)
[2020-06-18 11:21] LABS: DIRECT LDL 43 mg/dL (<100)
== END ==
LOC: OD 09:50
PROVIDERS: ATTEND Physician Assistant
DX: E83.42 Hypomagnesemia (principal); E78.00 Pure hypercholesterolemia, unspecified; I10 Essential (primary) hypertension; Z79.899 Other long term (current) drug therapy
CPT/HCPCS: 36415; 80048; 80061; 80076; 83735

== ENCOUNTER → 2020-09-21 | Outpatient (CLI) | payer MEDICARE, OTHER ==
[2020-09-21 10:33] LABS: ALKALINE PHOSPHATASE 54 U/L (38-126); ASPARTATE AMINO TRANSFERASE 23 U/L (14-36); BILIRUBIN,DIRECT 0.2 mg/dL (0.0-0.4); BILIRUBIN,TOTAL 0.5 mg/dL (0.2-1.3); BLOOD UREA NITROGEN 22 mg/dL (7-20); CALCIUM 9.9 mg/dL (8.4-10.2); CHOLESTEROL 132.35 mg/dL (0-200); GLUCOSE 94 mg/dL (75-110); POTASSIUM 4.3 mmol/L (3.6-5.0); TRIGLYCERIDES 64 mg/dL (<150)
[2020-09-21 10:38] LABS: ANION GAP 5 (5-19); CARBON DIOXIDE 33 mmol/L (22-30); CHLORIDE 101 mmol/L (98-107)
[2020-09-21 10:45] LABS: DIRECT LDL 39 mg/dL (<100)
== END ==
LOC: OD 09:23
PROVIDERS: ATTEND Physician Assistant
DX: E67.3 Hypervitaminosis D (principal); E78.00 Pure hypercholesterolemia, unspecified; I10 Essential (primary) hypertension; E83.42 Hypomagnesemia; Z79.899 Other long term (current) drug therapy
CPT/HCPCS: 36415; 80048; 80061; 80076; 82306; 83735